=== PATIENT | male | born 1945 | race Caucasian/White ===

== ENCOUNTER 2020-09-22 08:28 | Outpatient (CLI) | payer MEDICARE ==
[2020-09-22 09:04] LABS: TOTAL HEMOGLOBIN 17.5 G/dl (14.0-18.0)
== END 2020-09-22 23:59 | disposition home or self-care (01) ==
LOC: RT 08:28
PROVIDERS: ATTEND Family Medicine
DX: R06.02 Shortness of breath (principal)
CPT/HCPCS: 85018; 94010; 94727; 94729

== ENCOUNTER 2020-10-06 06:08 | Day surgery (SDC) | payer MEDICARE ==
[2020-09-24 16:58] LABS: BASOPHILS # (AUTO) 0.1 X10'3 (0-0.2); EOSINOPHILS # (AUTO) 0.3 X10'3 (0-0.9); EOSINOPHILS % (AUTO) 3.7 % (0-6); LYMPHOCYTES # (AUTO) 2.3 X10'3 (1.1-4.8); LYMPHOCYTES % (AUTO) 34.1 % (21-51); MEAN CORPUSCULAR HEMOGLOBIN 32.1 PG (27.0-31.0); MEAN CORPUSCULAR HGB CONC 33.5 g/dL (33.0-36.5); MEAN CORPUSCULAR VOLUME 95.6 FL (78-98); MEAN PLATELET VOLUME 7.9 FL (7.4-10.4); MONOCYTES # (AUTO) 0.8 X10'3 (0-0.9); MONOCYTES % (AUTO) 11.4 % (2-12); NEUTROPHILS # (AUTO) 3.4 X10'3 (1.8-7.7); NEUTROPHILS % (AUTO) 49.8 % (42-75); PRE OP HEMATOCRIT 44.2 % (42.0-52.0); PRE OP HEMOGLOBIN 14.8 g/dL (14.0-17.9); PRE OP PLATELET COUNT 176 X10'3 (140-440); RED BLOOD COUNT 4.63 X10'6 (4.70-6.10); RED CELL DISTRIBUTION WIDTH 12.6 % (11.5-14.5)
[2020-09-24 17:00] LABS: CLARITY,URINE CLEAR (Clear); COLOR,URINE YELLOW (Yellow); GLUCOSE, URINE NEGATIVE (Neg); KETONES,URINE NEGATIVE (Neg); LEUKOCYTE ESTERASE ,URINE NEGATIVE (Neg); NITRITES, URINE NEGATIVE (Neg); OCCULT BLOOD,URINE NEGATIVE (Neg); PROTEIN,URINE NEGATIVE (Neg); UROBILINOGEN,URINE 0.2 E.U/dL (0.2-1.0)
[2020-09-24 17:09] LABS: ALBUMIN/GLOBULIN RATIO 1.2 (1.1-1.5); ALKALINE PHOSPHATASE 56 IU/L (46-116); BLOOD UREA NITROGEN 22 MG/DL (7-18); BUN/CREATININE RATIO 20.4 (5.4-32.0); CALCIUM 8.5 MG/DL (8.5-10.1); CHLORIDE 106 MMOL/L (99-107); CREATININE 1.08 MG/DL (0.60-1.10); PRE OP ALT 29 U/L (30-65); PRE OP ANION GAP 6 (8-16); PRE OP AST 27 U/L (10-37); PRE OP BILIRUB, TOTAL 0.4 MG/DL (0.0-1.0); PRE OP GLUCOSE 72 MG/DL (70-104); PRE OP POTASSIUM 3.6 MMOL/L (3.4-5.1); PRE OP SODIUM 142 MMOL/L (135-145); TOTAL CARBON DIOXIDE 29.8 MMOL/L (24-32); TOTAL PROTEIN 7.4 G/DL (6.4-8.2); eGFR 67 ML/MIN
[2020-09-24 17:18] LABS: UA COLLECTION TYPE CLN CATCH MIDSTREAM
[~2020-10-06] VITALS: Ht 177.8 cm; Wt 70.3 kg
[2020-10-06] VITALS (25 sets, daily range): BP systolic 99–136; BP diastolic 60–94
[~2020-10-06 06:08] MED LIST: MAGN250T11 PO; MELO-100 PO; MULT-1074 PO; clindamycin-Cleocin 900mg/D5W 50 ML IV ONE; famotidine 20mg tablet PO ONE; ringers solution, lacted 1,000 ML IV SCH
[2020-10-06] MEDS ORDERED: BUPIVAcaine 0.5% inj/PF 30 ML ONE (08:15)
[2020-10-06] MEDS ORDERED: BUPIVAcaine/PF 5 MG/ML 10ML VIAL IJ ONE (08:33)
[2020-10-06] MEDS ORDERED: sevoflurane 250ml liquid IH ONE (08:42)
[2020-10-06] MEDS ORDERED: rocuronium 10mg/ml inj IV ONE (08:42)
[2020-10-06] MEDS ORDERED: neostigmine methylsulfate 1 MG/ML 10ml vial ONE (08:42)
[2020-10-06] MEDS ORDERED: glycopyrrolate 0.2mg/ml inj ONE (08:42)
[2020-10-06] MEDS ORDERED: midazolam 1 mg/ML 2ml injection ONE (08:49)
[2020-10-06] MEDS ORDERED: fentaNYL/PF 50MCG/1 ML 2ML syringe ONE (08:49)
[2020-10-06] MEDS ORDERED: dexamethasone sod phosphate 4mg/ml inj. ONE (08:49)
[2020-10-06] MEDS ORDERED: propofol inj 20 ML IV ONE (08:49)
[2020-10-06] MEDS ORDERED: LIDOcaine 2% (20mg/ml) 5ml vial ONE (08:49)
[2020-10-06] MEDS ORDERED: LIDOcaine 2% 5ml jelly ONE (08:54)
[2020-10-06] MEDS ORDERED: ondansetron/PF 4mg/2ml inj ONE (09:13)
[2020-10-06] MEDS ORDERED: acetaminophen 1,000mg/100ml IV 100 ML IV ONE (09:26)
[2020-10-06] MEDS ORDERED: morphine 4 MG/ML inj SYRINge IV PRN (09:30)
[2020-10-06] MEDS ORDERED: proCHLORperazine 10 MG/2 ml inj IV PRN (09:30)
[2020-10-06] MEDS ORDERED: ondansetron/PF 4mg/2ml inj IV PRN (09:30)
[2020-10-06] MEDS ORDERED: ringers solution, lacted 1,000 ML IV SCH (09:30)
[2020-10-06] MEDS ORDERED: meperidine/PF 25mg/ml syringe IV PRN ×2 (09:30)
[2020-10-06] MEDS ORDERED: morphine 2 MG/ML inj. syringe IV PRN (09:30)
[2020-10-06] MEDS ORDERED: LIDOcaine 1% (10mg/ml) 2ml vial ONE (09:49)
--- NOTE | 2020-10-06 10:48 | NUR ---
Received from OR via , accompanied by Anesthesiologist DR LOPEZ and report given by Anesthesiolgist. PT PRESENTS WITH 20G LEFT WRIST, ABD DRESSING DRY AND INTACT. VSS. Addendum: 10/06/20 at 1107 by Alyson Pablo RN, RN Amended: Links added.
[2020-10-06] MEDS: meperidine/PF 25mg/ml syringe IV PRN ×2 (11:14→11:23)
--- NOTE | 2020-10-06 14:13 | NUR ---
PT URINATED 40 MLS AT APROX 1300. PT NOW URINATED 70 MLS IN URINAL. BLADDER SCAN SHOWED 3MLS IN BLADDER. Addendum: 10/06/20 at 1414 by Alyson Pablo RN RN Amended: Links added.
== END 2020-10-06 14:38 | disposition home or self-care (01) ==
LOC: PAS 06:08
PROVIDERS: ATTEND Surgery
DX: K40.90 Unilateral inguinal hernia, without obstruction or gangrene, not specified as recurrent (principal); Z20.822 Contact with and (suspected) exposure to COVID-19; Z79.899 Other long term (current) drug therapy; Z90.79 Acquired absence of other genital organ(s); Z95.0 Presence of cardiac pacemaker; Z88.0 Allergy status to penicillin; Z87.891 Personal history of nicotine dependence; Z72.89 Other problems related to lifestyle; Z98.890 Other specified postprocedural states
CPT/HCPCS: 36415; 49650; 80053; 81003; 82948; 85025; 93005; C1758; C1781; J0131; J1100; J2001; J2175; J2250; J2405; J2704; J2710; J3010; J3490; U0003; U0005; Z7506; Z7508; Z7512; A4215; A4618; J7120

== ENCOUNTER → 2023-04-20 | Outpatient (CLI) | payer MEDICARE ==
[~2023-04-20] MED LIST changes: +GADOTERATE MEGLUMINE 7.5 MMOL/15 ML VIAL IV ONE; -clindamycin-Cleocin 900mg/D5W 50 ML IV ONE; -famotidine 20mg tablet PO ONE; -ringers solution, lacted 1,000 ML IV SCH
== END | disposition home or self-care (01) ==
LOC: RAD 08:15
PROVIDERS: ATTEND Dental Hygienist
DX: H90.3 Sensorineural hearing loss, bilateral (principal)
CPT/HCPCS: 70553; A9575